=== PATIENT | male | born 2000 | race Caucasian/White ===

== ENCOUNTER 2021-09-11 16:14 | Emergency (ER) | payer MEDICAID, SELFPAY ==
[2021-09-11 16:25] VITALS: BP 169/84; PULSE 109; RESP 18; TEMP 36.2; O2SAT 98
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
== END 2021-09-11 17:51 | disposition home or self-care (01) ==
PROVIDERS: Emergency Provider Nurse Practitioner Family; PCP Nurse Practitioner Family
DX: S60.222A Contusion of left hand, initial encounter (principal); V23.4XXA Motorcycle driver injured in collision with car, pick-up truck or van in traffic accident, initial encounter
CPT/HCPCS: 73130; 99283

== ENCOUNTER → 2022-11-19 10:04 | Outpatient (BNVA) | payer OTHER, MEDICAID, SELFPAY | PROVIDERS: PCP Nurse Practitioner Family; Visit Provider Family Medicine Adult Medicine | DX: E16.2 Hypoglycemia, unspecified (principal); Z83.49 Family history of other endocrine, nutritional and metabolic diseases; J45.990 Exercise induced bronchospasm | CPT/HCPCS: 80053; 83036; 84443; 85025 ==

== ENCOUNTER 2024-11-09 07:57 | Emergency (ER) | payer SELFPAY ==
--- NOTE | 2024-11-09 08:03 | ED_ITS ---
HPI - Seizure 2 General: Chief Complaint: Seizure Stated Complaint: seizures Time Seen by Provider: 11/09/24 08:03 History of Present Illness: HPI Narrative: 24-year-old male presents emergency room with witnessed seizure. Patient got [employer] work called multiple events before work does not recall anything that happened while at work states the next week to recall he was in an ambulance. He has a family history of seizures no personal history no recent medications bystanders report he did not hit his head. He is not on any anticoagulants. Associated symptoms: Deny chest pain, chills or fever(s) Related Data Home Medications ?Medication ?Instructions ?Recorded ?Confirmed ibuprofen 200 mg tablet (Advil) 800 mg PO Q6H PRN Feve r Or Pain 11/09/24 11/09/24 Allergies Allergy/AdvReac Type Severity Reaction Status Date / Time No Known Allergies Allergy Verified 02/18/23 11:06 Review of Systems 2 Const: Denies: fever(s) or chills Card: Denies: chest pain Resp: Denies: dyspnea GI: Denies: abdominal pain : Denies: dysuria, urinary frequency or urinary urgency Musc: Denies: neck pain or back pain Skin/Breast: Denies: rash PFSH ED 2 PFSH: Medical History Multiple episodes of hypoglycemia FH: thyroid disease Asthma, exercise induced Social History Smoking and tobacco/nicotine status: light tobacco/nicotine user (occasional cigar) Physical Exam 2 Const: GENERAL APPEARANCE: cooperative ORIENTATION/CONSCIOUSNESS: Yes awake, Yes oriented to person, Yes oriented to place and Yes oriented to time HENMT: COMMON NORMALS: normocephalic, atraumatic and hearing grossly normal bilaterally HEAD & SCALP: normocephalic and atraumatic Resp: COMMON NORMALS: normal respiratory effort, No retractions, No use of accessory muscles and clear to auscultation bilaterally AUSCULTATION: clear to auscultation bilaterally Cardio: COMMON NORMALS: regular rate, regular rhythm and No murmurs present (Cardio) RATE: regular rate RHYTHM: regular rhythm GI: COMMON NORMALS: Soft to palpation and No hepatosplenomegaly present A USCULTATION: Yes normoactive bowel sounds PALPATION: Yes Soft to palpation, No Tenderness to palpation present (GI), No Guarding due to palpation present (GI) and Yes No hepatosplenomegaly present Extremity: COMMON NORMALS: normal to inspection, capillary refill normal, no clubbing, cyanosis or edema, no calf tenderness and no pedal edema Neuro: SENSORIUM/ORIENTATION: Yes oriented to person, Yes oriented to place and Yes oriented to time Skin: COMMON NORMALS: no rashes or lesions noted GENERAL SKIN EXAM: no rashes or lesions noted Course 2 Vital Signs: Vital signs: Vital Signs Temperature 98.4 F 11/09/24 08:06 Pulse Rate 72 11/09/24 11:42 Respiratory Rate 17 11/09/24 08:39 Blood Pressure 131/76 11/09/24 11:42 Pulse Oximetry 99 11/09/24 11:42 Oxygen Delivery Me thod Room Air 11/09/24 11:41 MDM - Seizure MDM Narrative Medical decision making narrative: New onset seizure. Has not had any further seizures since thus his postictal phase has passed. CT of his head negative. Discharge home set up for outpatient sleep deprived EEG and follow-up with neurology. Patient advised he should not drive until cleared by neurology. Return if he has further episodes of seizures. Lab Data 11/09/24 07:40 11/09/24 07:40 Labs: Radiology Impressions Head CT 11/09/24 08:30 IMPRESSION: Negative head CT. Laboratory Results WBC 7.78 10^3/uL (3.29-11.43) 11/09/24 07:40 RBC 5.30 10^6/uL (3.85-5.65) 11/09/24 07:40 Hgb 16.20 g/dL (11.27-16.99) 11/09/24 07:40 Hct 48.3 % (37-53) 11/09/24 07:40 MCV 91.1 fl (82-101) 11/09/24 07:40 MCH 30.6 pg (27-33) 11/09/24 07:40 MCHC 33.5 g/dL (30-55) 11/09/24 07:40 RDW 11.5 % (12.1-15.1) L 11/09/24 07:40 Plt Count 259 10^3/cmm (157-399) 11/09/24 07:40 MPV 11.2 fL (7.4-10.4) H 11/09/24 07:40 Neut % (Auto) 49.0 % 11/09/24 07:40 Lymph % (Auto) 40.9 % 11/09/24 07:40 Wheeler % (Auto) 7.6 % 11/09/24 07:40 Eos % (Auto) 1.4 % 11/09/24 07:40 Baso % (Auto) 0.6 % 11/09/24 07:40 Neut # (Auto) 3.81 10^3/uL (1.8-7.7) 11/09/24 07:40 Lymph # (Auto) 3.2 10^3/uL (0.8-4.8) 11/09/24 07:40 Wheeler # (Auto) 0.6 10^3/uL (0.2-0.9) 11/09/24 07:40 Eos # (Auto) 0.1 10^3/uL (0.0-0.8) 11/09/24 07:40 Baso # (Auto) 0.1 10^3/uL (0.0-0.1) 11/09/24 07:40 Nucleated RBC % (auto) 0 % 11/09/24 07:40 Nucleated RBCs # 0.0 /100WBC 11/09/24 07:40 Sodium 140 mmol/L (136-145) 11/09/24 07:40 Potassium 3.8 mmol/L (3.5-5.1) 11/09/24 07:40 Chloride 100 mmol/L (98-107) 11/09/24 07:40 Carbon Dioxide 15 mmol/L (22-29) L 11/09/24 07:40 Anion Gap 28.8 (5-19) H 11/09/24 07:40 BUN 21 mg/dL (6-20) H 11/09/24 07:40 Creatinine 1.2 mg/dL (0.7-1.2) 11/09/24 07:40 GFR Calculation 75.0 mL/min (90-130) L 11/09/24 07:40 Glucose 114 mg/dL (65-115) 11/09/24 07:40 Calculated Osmolality 294 mOsm/kg (285-295) 11/09/24 07:40 Lactic Acid 1.5 mmol/L (0.5-2.2) 11/09/24 09:32 Calcium 9.4 mg/dL (8.5-10.5) 11/09/24 07:40 Magnesium 2.2 mg/dL (1.7-2.3) 11/09/24 07:40 Total Bilirubin 0.6 mg/dL (0.15-1.2) 11/09/24 07:40 AST 20 U/L (0-40) 11/09/24 07:40 ALT 22 U/L (0-41) 11/09/24 07:40 Alkaline Phosphatase 75 U/L (40-130) 11/09/24 07:40 Creatine Kinase 198 U/L (39-308) 11/09/24 07:40 Total Protein 8.0 g/dL (6.6-8.7) 11/09/24 07:40 Albumin 4.9 g/dL (3.5-5.2) 11/09/24 07:40 Globulin 3.1 g/dL (1.3-4.6) 11/09/24 07:40 All radiology interpretation(s) finalized by discharge Discharge Plan Discharge Patient Disposition: Home Clinical Impression: New onset seizure Condition: Stable Prescriptions: No Action ibuprofen [Advil] 200 mg Tablet 800 mg PO Q6H PRN (Reason: Fever Or Pain) Discharge Orders: Discharge ED (Routine); Ordered 11/09/24 Ordered By: Elton Donnelly Referrals: Louis Lynn, HAND BASEBALL SEWER [Primary Care Provider, [facility]] Discharge Diet: Usual diet Discharge Activity: Limit activity as instructed Patient Instructions: New-Onset Seizure in Adults (ED), Opioid Safety, Pain Management, Patient Portal & Ivis Instructions Activity Restrictions/Additional Instructions: [facility] It is very important that you follow up as instructed or that you return to the Emergency Department should you have concerns or if your condition changes or worsens in any way. You are seen in the emergency room after having a seizure. CT of your head was negative. Will set you up for outpatient EEG and follow-up with neurology. You should not drive until you are cleared by neurology to drive again. Stand Alone Forms: Work/School Release Print Language: Citizen Of [place] Coding Level of Care Code ED Hoist Worker for Tamir Mercado
[2024-11-09 08:06] VITALS: BP 161/86; PULSE 107; RESP 25; TEMP 36.9; O2SAT 97
[2024-11-09 08:16] LABS: Hematocrit 48.3 % (37-53); Hemoglobin 16.20 g/dL (11.27-16.99); Mean Corpuscular HGB Conc 33.5 g/dL (30-55); Mean Corpuscular Hemoglobin 30.6 pg (27-33); Mean Corpuscular Volume 91.1 fl (82-101); Nucleated Red Blood Cells % 0 %; Platelet Count 259 10^3/cmm (157-399); Red Blood Count 5.30 10^6/uL (3.85-5.65); White Blood Count 7.78 10^3/uL (3.29-11.43)
--- NOTE | 2024-11-09 08:30 | CT_ITS ---
WS: [id number] CT HEAD NONCONTRAST HISTORY: New onset seizure TECHNIQUE: Contiguous axial imaging performed through the brain. Bone and soft tissue windows. Sagittal and coronal reformats reviewed. All CT scans at [facility] use at least one of these dose optimization techniques: automated exposure control; mA and/or kV adjustment per patient size (includes targeted exams where dose is matched to clinical indication); or iterative reconstruction. DLP: 1117.38 mGy.cm COMPARISON: None available. No acute intracranial hemorrhage, midline shift or mass effect. No atrophy or prior infarcts or herniation. Ventricles: Normal size with no hydrocephalus. Paranasal sinuses: As visualized are clear. Mastoid air cells: Well pneumatized. Calvarium and scalp: Skull is intact with no soft tissue edema or swelling. CT/CT head wo con* [id number] IMPRESSION: Negative head CT.
[2024-11-09 08:36] LABS: Alanine Aminotransferase 22 U/L (0-41); Albumin Level 4.9 g/dL (3.5-5.2); Alkaline Phosphatase 75 U/L (40-130); Anion Gap 28.8 (5-19); Aspartate Amino Transferase 20 U/L (0-40); Blood Urea Nitrogen 21 mg/dL (6-20); Calcium 9.4 mg/dL (8.5-10.5); Carbon Dioxide 15 mmol/L (22-29); Chloride 100 mmol/L (98-107); Creatinine Clr Calc Pharmacy 114.6459; Globulin 3.1 g/dL (1.3-4.6); Glucose 114 mg/dL (65-115); Magnesium 2.2 mg/dL (1.7-2.3); Osmolality Calculated 294 mOsm/kg (285-295); Potassium 3.8 mmol/L (3.5-5.1); Sodium 140 mmol/L (136-145); Total Protein 8.0 g/dL (6.6-8.7)
[2024-11-09 08:39] VITALS: BP 136/83; PULSE 97; RESP 17; O2SAT 97
[2024-11-09 10:11] VITALS: BP 125/65; PULSE 91; O2SAT 97
[2024-11-09 10:14] LABS: Lactic Sepsis W/Reflex 1.5 mmol/L (0.5-2.2)
[2024-11-09 11:41] VITALS: BP 131/76; PULSE 72; O2SAT 99
[2024-11-09 11:42] VITALS: BP 131/76; PULSE 72; O2SAT 99
--- NOTE | 2024-11-10 06:03 | DCPLANNER ---
Message sent to Neurology for follow-up / Referral
== END 2024-11-09 11:43 | disposition home or self-care (01) ==
PROVIDERS: Emergency Provider Family Medicine; PCP Nurse Practitioner Family
DX: G40.89 Other seizures (principal); Z72.0 Tobacco use
CPT/HCPCS: 36415; 70450; 80053; 82550; 83605; 83735; 85025; 99284; J7030